=== PATIENT | female | born 1935 | race Caucasian/White ===

== ENCOUNTER 2019-03-30 11:11 | Observation (INO) ==
[2019-03-30 11:54] LABS: Bilirubin,Urine Negative (Negative); Blood,Urine Trace (Negative); Clarity,Urine Cloudy (Clear); Color,Urine Yellow (Yellow); Glucose,Urine (UA) Normal (Normal); Ketones,Urine Negative (Negative); Leukocyte Esterase,Urine Large (Negative); Nitrite,Urine Negative (Negative); Protein,Urine Negative (Neg-Trace); Specific Gravity,Urine 1.022 (1.010-1.025); Urobilinogen,Urine Normal (Normal)
[2019-03-30 11:57] LABS: Bacteria,Urine Few per hpf (None-Few); Hyaline Casts,Urine None Seen per lpf (None-Few); Squamous Epithelial Cell,Urine Many per lpf (None-Few); WBC,Urine TNTC per hpf (0-3)
[2019-03-30] MEDS ORDERED: 0.9 % Sodium Chloride 500 ML IVC ONE (12:13)
[2019-03-30 12:53] LABS: Basophils # 0.1 K/mcL (0.0-0.2); Basophils % 0.7 %; Eosinophils # 0.2 K/mcL (0.0-0.6); Eosinophils % 1.7 %; Hemoglobin 12.9 g/dL (11.5-15.4); Immature Granulocytes % 0.5 % (0-4); Lymphocytes # 2.7 K/mcL (0.6-4.6); Lymphocytes % 25.4 %; Mean Corpuscular HGB Conc 33.1 g/dL (31.6-35.5); Mean Corpuscular Hemoglobin 31.8 pg (28.0-33.3); Mean Corpuscular Volume 96.1 fL (83.0-100.0); Mean Platelet Volume 9.3 fL (9.4-12.4); Monocytes # 0.9 K/mcL (0.0-1.3); Monocytes % 8.3 %; Neutrophils # 6.8 K/mcL (1.6-8.9); Platelet Count 203 K/mcL (140-400); Red Blood Count 4.06 M/mcL (3.82-4.97); Segmented Neutrophils % 63.4 %; White Blood Count 10.6 K/mcL (4.3-11.1)
[2019-03-30 12:59] LABS: Estimated Average Glucose 148 mg/dl
[2019-03-30 13:11] LABS: Acetaminophen < 10 mcg/mL (10-20); BUN/Creatinine Ratio 30 (6-26); Blood Urea Nitrogen 20 mg/dL (8-23); Calcium 9.1 mg/dL (8.6-10.3); Carbon Dioxide 25 mEq/L (23-29); Chloride 103 mEq/L (98-107); Chol/HDL Ratio 2.9 (0-4.9); Cholesterol 143 mg/dL (< 200); Ethanol < 10 mg/dL (Less than 10); Glucose 92 mg/dL (70-105); HDL Cholesterol 49 mg/dL (40-59); LDL Cholesterol,Calculated 66 mg/dL (0-99); Osmolality,Calculated 290 (280-300); Potassium 3.9 mEq/L (3.5-5.1); Salicylate < 2.5 mg/dL (15.0-30.0); Sodium 139 mEq/L (136-145); Triglycerides 141 mg/dL (< 150); eGFR For African Americans > 60 (> 60); eGFR For Non-African Americans > 60 (> 60)
[2019-03-30] MEDS ORDERED: cefTRIAXone 1,000 MG in Water for inj. (sterile) 10 ML IVP ONE (14:18)
[2019-03-30] MEDS ORDERED: Naloxone 0.4 MG/ML INJ IVP PRN (15:58)
[2019-03-30] MEDS: Insulin LISPRO 300 UNITS/3 ML VIAL SQ SCH ×2 (18:28→20:30)
[2019-03-30] MEDS: *HR* Heparin 5,000 UNIT/ML VIAL SQ SCH (21:22)
[2019-03-31 01:28] LABS: Amphetamine Screen,Urine Negative ng/mL (Cutoff=1000); Barbiturate Screen,Urine Negative ng/mL (Cutoff=200); Benzodiazepines Screen,Urine Negative ng/mL (Cutoff=200); Cannabinoid Screen,Urine Negative ng/mL (Cutoff = 50); Cocaine Screen,Urine Negative ng/mL (Cutoff= 300); Opiate Screen,Urine Negative ng/mL (Cutoff=300); Phencyclidine Screen,Urine Negative ng/mL (Cutoff=25)
[2019-03-31] MEDS: *HR* Heparin 5,000 UNIT/ML VIAL SQ SCH ×3 (05:47→20:55)
[2019-03-31] MEDS: Insulin LISPRO 300 UNITS/3 ML VIAL SQ SCH ×4 (08:16→21:02)
[2019-03-31] MEDS: Venlafaxine XR (24 HR) 75 MG CAP.ER.24H PO SCH (08:20)
[2019-03-31] MEDS ORDERED: cefTRIAXone 1,000 MG in Water for inj. (sterile) 10 ML IVP SCH (14:00)
[2019-04-01] MEDS: *HR* Heparin 5,000 UNIT/ML VIAL SQ SCH ×2 (05:36→11:05)
[2019-04-01] MEDS: Insulin LISPRO 300 UNITS/3 ML VIAL SQ SCH ×3 (10:03→16:42)
[2019-04-01] MEDS: Venlafaxine XR (24 HR) 75 MG CAP.ER.24H PO SCH (10:07)
[2019-04-01 15:21] VITALS: BP 150/83
[2019-04-01] MEDS ORDERED: Ondansetron ODT 4 MG TAB.RAPDIS SL PRN ×2 (15:27→15:40)
[2019-04-01] MEDS ORDERED: QUEtiapine Fumarate 25 MG TABLET PO SCH (21:00)
== END 2019-04-01 17:02 | disposition home or self-care (01) ==
LOC: 3ANU 11:11 → EMEROOARM 11:11 → SUATTDRO 14:52 → 3ANU 16:16
PROVIDERS: ADMIT Internal Medicine; ATTEND Internal Medicine

== ENCOUNTER 2019-04-01 17:06 | Observation (INO) ==
[2019-04-01] MEDS ORDERED: MOM Conc 10 ML UD.LIQ PO PRN (17:27)
[2019-04-01] MEDS ORDERED: Haloperidol Lactate 5 MG/ML VIAL IM PRN (17:27)
[2019-04-01] MEDS ORDERED: hydrOXYzine pamoate 25 MG CAPSULE PO PRN (17:27)
[2019-04-01] MEDS ORDERED: Acetaminophen 325 MG TABLET PO PRN (17:27)
[2019-04-01] MEDS ORDERED: *HR* LORazepam 1 MG TABLET PO PRN (17:27)
[2019-04-01] MEDS ORDERED: Mag Hydrox/Al Hydrox/Simeth 30 ML UDC PO PRN (17:27)
[2019-04-01] MEDS ORDERED: QUEtiapine Fumarate 25 MG TABLET PO PRN (17:27)
[2019-04-01] MEDS ORDERED: *HR* LORazepam 2 MG/ML VIAL IM PRN (17:27)
[2019-04-01] MEDS ORDERED: Ondansetron ODT 4 MG TAB.RAPDIS PO PRN (17:31)
[2019-04-01] MEDS ORDERED: Dextrose Gel 15 GM/37.5 ML TUBE PO PRN ×2 (17:38)
[2019-04-01] MEDS ORDERED: QUEtiapine Fumarate 25 MG TABLET PO SCH (21:00)
[2019-04-01] MEDS: Famotidine 20 MG TABLET PO SCH (21:09)
[2019-04-02] MEDS: Insulin LISPRO 300 UNITS/3 ML VIAL SQ SCH ×3 (09:57→16:33)
[2019-04-02] MEDS: *HR* SitaGLIPtin 100 MG TABLET PO SCH (10:08)
[2019-04-02] MEDS: Multivit/Ca/Min/Fe/FA 1 TAB TABLET PO SCH (10:08)
[2019-04-02] MEDS: Venlafaxine XR (24 HR) 75 MG CAP.ER.24H PO SCH (10:08)
[2019-04-02] MEDS: Famotidine 20 MG TABLET PO SCH ×2 (10:08→20:13)
[2019-04-02] MEDS: QUEtiapine Fumarate 25 MG TABLET PO SCH (20:13)
[2019-04-03] MEDS: *HR* SitaGLIPtin 100 MG TABLET PO SCH (08:18)
[2019-04-03] MEDS: Famotidine 20 MG TABLET PO SCH ×2 (08:18→20:07)
[2019-04-03] MEDS: Multivit/Ca/Min/Fe/FA 1 TAB TABLET PO SCH (08:18)
[2019-04-03] MEDS: Venlafaxine XR (24 HR) 75 MG CAP.ER.24H PO SCH (08:18)
[2019-04-03] MEDS: Insulin LISPRO 300 UNITS/3 ML VIAL SQ SCH ×3 (08:24→16:26)
[2019-04-03] MEDS: QUEtiapine Fumarate 25 MG TABLET PO SCH (20:07)
[2019-04-04] MEDS: Famotidine 20 MG TABLET PO SCH ×2 (09:04→20:51)
[2019-04-04] MEDS: Multivit/Ca/Min/Fe/FA 1 TAB TABLET PO SCH (09:04)
[2019-04-04] MEDS: Venlafaxine XR (24 HR) 75 MG CAP.ER.24H PO SCH (09:04)
[2019-04-04] MEDS: *HR* SitaGLIPtin 100 MG TABLET PO SCH (09:04)
[2019-04-04] MEDS: Insulin LISPRO 300 UNITS/3 ML VIAL SQ SCH ×3 (09:06→16:29)
[2019-04-04] MEDS: QUEtiapine Fumarate 25 MG TABLET PO SCH (20:52)
[2019-04-05] MEDS: *HR* SitaGLIPtin 100 MG TABLET PO SCH (09:23)
[2019-04-05] MEDS: Multivit/Ca/Min/Fe/FA 1 TAB TABLET PO SCH (09:23)
[2019-04-05] MEDS: Famotidine 20 MG TABLET PO SCH ×2 (09:23→20:18)
[2019-04-05] MEDS: Venlafaxine XR (24 HR) 75 MG CAP.ER.24H PO SCH (09:23)
[2019-04-05] MEDS: Insulin LISPRO 300 UNITS/3 ML VIAL SQ SCH ×3 (09:24→16:28)
[2019-04-05] MEDS: QUEtiapine Fumarate 25 MG TABLET PO SCH (20:18)
[2019-04-06] MEDS: Insulin LISPRO 300 UNITS/3 ML VIAL SQ SCH (08:34)
[2019-04-06] MEDS: Famotidine 20 MG TABLET PO SCH (08:35)
[2019-04-06] MEDS: *HR* SitaGLIPtin 100 MG TABLET PO SCH (08:35)
[2019-04-06] MEDS: Multivit/Ca/Min/Fe/FA 1 TAB TABLET PO SCH (08:35)
[2019-04-06] MEDS: Venlafaxine XR (24 HR) 75 MG CAP.ER.24H PO SCH (08:35)
[2019-04-06 09:10] VITALS: BP 106/69
== END 2019-04-06 12:57 | disposition home or self-care (01) ==
LOC: 1ANU 17:06 → INTOOBSV 17:06 → SUATTDRO 17:06 → 1ANU 04-04 22:17
PROVIDERS: ADMIT Psychiatry & Neurology Psychiatry; ATTEND Psychiatry & Neurology Psychiatry